=== PATIENT | male | born 1985 | race Caucasian/White ===

== ENCOUNTER 2018-01-22 19:00 | Outpatient (CLI) | payer OTHER | END 2018-01-22 19:01 | disposition home or self-care (01) | LOC: SLEEPLAB 19:00 | PROVIDERS: ATTEND Family Medicine | DX: G47.33 Obstructive sleep apnea (adult) (pediatric) (principal); I10 Essential (primary) hypertension; E66.9 Obesity, unspecified; R06.83 Snoring | CPT/HCPCS: 95806 ==

== ENCOUNTER 2022-07-24 06:18 | Day surgery (SDC) | payer BC ==
[2022-07-22 12:48] VITALS: BMI 34.4
[2022-07-24] MEDS ORDERED: Oxymetazoline HCl 0.05% (30 ML BOT) ONE ×2 (06:57→07:01)
[2022-07-24] MEDS ORDERED: Bacitracin Zinc Ointment 30 gm TUBE ONE (07:01)
[2022-07-24] MEDS ORDERED: EPINEPHrine 1 MG/ML AMP ONE (07:01)
[2022-07-24] MEDS ORDERED: Lidocaine 1% (PF) 30 ML VIAL ONE (07:01)
[2022-07-24] MEDS ORDERED: fentaNYL Citrate/PF 100 MCG/2 ML SYRINGE ONE (08:08)
[2022-07-24] MEDS ORDERED: Midazolam HCl 2 mg/2 ml Vial ONE (08:22)
[2022-07-24] MEDS ORDERED: Lidocaine 1% MPF 2 ML VIAL ONE (08:45)
[2022-07-24] MEDS ORDERED: Ondansetron PF 4 MG/2 ML Vial ONE (08:45)
[2022-07-24] MEDS ORDERED: PROPOFOL 200 MG/20 ML VIAL ONE (08:45)
[2022-07-24] MEDS ORDERED: Fentanyl 100 MCG/2 ML VIAL ONE (10:01)
[2022-07-24] MEDS ORDERED: Promethazine HCl 25 MG/ML VIAL ONE (10:26)
== END 2022-07-24 11:43 | disposition home or self-care (01) ==
LOC: SDC 06:18
PROVIDERS: ATTEND Otolaryngology Plastic Surgery within the Head & Neck
PROC: 099S8ZZ Drainage of Right Frontal Sinus, Via Natural or Artificial Opening Endoscopic (ICD-10-PCS; principal; 2022-07-24)
PROC: 09SM0ZZ Reposition Nasal Septum, Open Approach (ICD-10-PCS; principal; 2022-07-24)
PROC: 09TU8ZZ Resection of Right Ethmoid Sinus, Via Natural or Artificial Opening Endoscopic (ICD-10-PCS; principal; 2022-07-24)
PROC: 09TV8ZZ Resection of Left Ethmoid Sinus, Via Natural or Artificial Opening Endoscopic (ICD-10-PCS; principal; 2022-07-24)
PROC: 099Q8ZZ Drainage of Right Maxillary Sinus, Via Natural or Artificial Opening Endoscopic (ICD-10-PCS; principal; 2022-07-24)
PROC: 095L0ZZ Destruction of Nasal Turbinate, Open Approach (ICD-10-PCS; principal; 2022-07-24)
PROC: 099R8ZZ Drainage of Left Maxillary Sinus, Via Natural or Artificial Opening Endoscopic (ICD-10-PCS; principal; 2022-07-24)
PROC: 099T8ZZ Drainage of Left Frontal Sinus, Via Natural or Artificial Opening Endoscopic (ICD-10-PCS; principal; 2022-07-24)
DX: J32.4 Chronic pansinusitis (principal); J34.2 Deviated nasal septum; J34.3 Hypertrophy of nasal turbinates; J34.89 Other specified disorders of nose and nasal sinuses; Z79.899 Other long term (current) drug therapy
CPT/HCPCS: J0171; J2001; J2250; J2405; J2550; J2704; J3010

== ENCOUNTER 2024-04-14 09:02 | Outpatient (CLI) | payer OTHER | END 2024-04-14 09:03 | disposition home or self-care (01) | LOC: BICMRI 09:02 | PROVIDERS: ATTEND Family Medicine | DX: S46.212A Strain of muscle, fascia and tendon of other parts of biceps, left arm, initial encounter (principal) ==

== ENCOUNTER 2024-04-22 10:23 | Day surgery (SDC) | payer OTHER ==
[2024-04-21 11:44] VITALS: BMI 35.9
[2024-04-22] MEDS ORDERED: Lidocaine 1% (PF) 30 ML VIAL ONE (12:15)
[2024-04-22] MEDS ORDERED: fentaNYL 50 mcg/mL 1 mL Vial ONE (12:15)
[2024-04-22] MEDS ORDERED: Midazolam HCl 2 mg/2 ml Vial ONE ×2 (12:15→13:30)
[2024-04-22] MEDS ORDERED: Bupivacaine PF 0.5% 30 ML VIAL ONE (12:15)
[2024-04-22 12:32] LABS: #Basophils 0.11 10x3/uL (0.0-0.2); %Basophils 1.6 % (0.0-1.0); %Eosinophils 2.4 % (0.0-10.0); %Monocytes 12.4 % (0.0-10.0); Hematocrit 43.6 % (42.0-52.0); Hemoglobin 15.8 g/dL (14.0-18.0); Mean Corpuscular HGB CONC 36.2 g/dL (32.0-36.0); Mean Corpuscular Hemoglobin 30.7 pg (27.0-31.0); Mean Corpuscular Volume 84.7 fL (78.0-98.0); Mean Platelet Volume 11.4 fL (7.4-10.4); Platelet Count 144 10x3/uL (130-400); RBC Distribution Width 13.3 % (11.5-14.5); Red Blood Cell (RBC) Count 5.15 mill/uL (4.70-6.10)
[2024-04-22] MEDS ORDERED: fentaNYL PF 100 MCG/2 ML SYRINGE ONE (13:17)
[2024-04-22] MEDS ORDERED: PROPOFOL 20 ML ONE ×2 (13:17)
[2024-04-22] MEDS ORDERED: Lidocaine 1% PF 5 ML VIAL ONE (13:17)
[2024-04-22] MEDS ORDERED: Dexamethasone 4 mg/ml Vial ONE (13:19)
[2024-04-22] MEDS ORDERED: Ondansetron PF 4 MG/2 ML Vial ONE (13:20)
[2024-04-22] MEDS ORDERED: CEFAZOLIN 2 GM VIAL ONE (13:21)
[2024-04-22] MEDS ORDERED: Sodium Chloride 0.9% 100 ML ONE (13:21)
[2024-04-22] MEDS ORDERED: Ketorolac Tromethamine 30 MG (1 mL) VIAL ONE (14:17)
== END 2024-04-22 17:15 | disposition home or self-care (01) ==
LOC: SDC 10:23
PROVIDERS: ATTEND Orthopaedic Surgery
PROC: 0LQ60ZZ Repair Left Lower Arm and Wrist Tendon, Open Approach (ICD-10-PCS; principal; 2024-04-22)
DX: S46.212A Strain of muscle, fascia and tendon of other parts of biceps, left arm, initial encounter (principal); I10 Essential (primary) hypertension; G47.33 Obstructive sleep apnea (adult) (pediatric); F90.9 Attention-deficit hyperactivity disorder, unspecified type; Z87.891 Personal history of nicotine dependence; Z88.8 Allergy status to other drugs, medicaments and biological substances; Z79.899 Other long term (current) drug therapy
CPT/HCPCS: 85025; A6223; C1713; J0665; J1100; J1885; J2001; J2250; J2405; J2704; J3010; J3490